=== PATIENT | male | born 1990 | race Caucasian/White ===

== ENCOUNTER 2017-09-04 15:36 | Emergency (ER) | payer BC ==
[~2017-09-04] VITALS: Ht 180.3 cm; Wt 115.7 kg
[~2017-09-04 15:36] MED LIST: CEFD300; CITA20 PO; HYDGUAL120 PO; METO25 PO; MOMENI
[2017-09-04 17:13] LABS: BASOPHILS ABSOLUTE AUTO 0.03 K/mm3 (0.00-0.23); BASOPHILS PERCENT AUTO 0 % (0-2); EOSINOPHILS ABSOLUTE AUTO 0.06 K/mm3 (0.00-0.68); EOSINOPHILS PERCENT AUTO 1 % (0-6); Hematocrit 46.2 % (37.0-53.0); Hemoglobin 15.8 g/dL (13.5-17.5); IMMATURE GRAN ABSOLUTE AUTO 0.02 K/mm3 (0.00-0.10); IMMATURE GRAN PERCENT AUTO 0 % (0-1); LYMPHOCYTES ABSOLUTE AUTO 1.81 K/mm3 (0.84-5.20); LYMPHOCYTES PERCENT AUTO 26 % (21-46); MONOCYTES ABSOLUTE AUTO 0.47 K/mm3 (0.16-1.47); MONOCYTES PERCENT AUTO 7 % (4-13); Mean Corpuscular HGB 30.1 pg (26.0-34.0); Mean Corpuscular HGB Conc 34.2 g/dL (31.5-36.5); Mean Corpuscular Volume 88 fL (80-100); Mean Platelet Volume 9.1 fL (9.1-12.4); NEUTROPHILS ABSOLUTE AUTO 4.62 K/mm3 (1.96-9.15); NEUTROPHILS PERCENT AUTO 66 % (41-73); Platelet Count 280 K/mm3 (150-400); RDW Coefficient Variation 12.1 % (11.7-14.2); Red Blood Cell Count 5.25 M/mm3 (4.30-5.90); White Blood Cell Count 7.01 K/mm3 (4.00-11.30)
[2017-09-04 17:33] LABS: Troponin I <0.015 ng/mL (0.000-0.040)
[2017-09-04 17:38] LABS: Alanine Aminotransfer (ALT/SGP 54 U/L (12-78); Albumin/Globulin Ratio 1.1 (0.8-1.8); Alk Phos 69 U/L (50-136); Anion Gap 6 mmol/L (6-16); Aspartate Aminotrans (AST/SGOT 21 U/L (12-37); Bilirubin, Total 0.8 mg/dL (0.1-1.0); Blood Urea Nitrogen 12 mg/dL (8-24); Bun/Creatinine Ratio 13.2 (12.0-20.0); CO2, Blood 27 mmol/L (21-32); Calcium, Blood 8.5 mg/dL (8.5-10.1); Chloride, Blood 107 mmol/L (98-108); Creatinine, Blood 0.91 mg/dL (0.60-1.20); Globulin, Blood 3.8 g/dL (2.2-4.0); Glomerular Filtration Rate >60 (60-); Glucose, Blood 85 mg/dL (70-99); Potassium, Blood 3.9 mmol/L (3.5-5.5); Sodium, Blood 140 mmol/L (136-145); Total Protein, Blood 7.8 g/dL (6.4-8.2)
== END 2017-09-04 18:52 | disposition home or self-care (01) ==
LOC: ER 15:36
PROVIDERS: Emergency Medicine
DX: R00.1 Bradycardia, unspecified (principal); F41.9 Anxiety disorder, unspecified; F17.220 Nicotine dependence, chewing tobacco, uncomplicated
CPT/HCPCS: 36415; 71046; 80053; 84484; 85025; 93005; 93010; 99283

== ENCOUNTER 2017-09-10 11:30 | Emergency (ER) | payer BC ==
[~2017-09-10] VITALS: Ht 180.3 cm; Wt 113.4 kg
== END 2017-09-10 15:10 | disposition home or self-care (01) ==
LOC: ER 11:30
DX: R00.0 Tachycardia, unspecified (principal); F41.9 Anxiety disorder, unspecified; F17.220 Nicotine dependence, chewing tobacco, uncomplicated
CPT/HCPCS: 93005; 93010; 93225; 93226; 99283

== ENCOUNTER 2020-10-29 23:53 | Emergency (ER) | payer OTHER, BC ==
[~2020-10-29] VITALS: Ht 177.8 cm; Wt 127.0 kg
[2020-10-30] MEDS ORDERED: SERT100 PO (00:05)
[2020-10-30] MEDS ORDERED: IBU600 MG PO (00:37)
== END 2020-10-30 00:43 | disposition home or self-care (01) ==
LOC: ER 23:53
DX: G56.01 Carpal tunnel syndrome, right upper limb (principal); Z79.899 Other long term (current) drug therapy; F17.220 Nicotine dependence, chewing tobacco, uncomplicated
CPT/HCPCS: 29125; 73110; 99283-25; A9270